=== PATIENT | male | born 1985 | race Caucasian/White ===

== ENCOUNTER 2016-05-12 13:22 | Emergency (ER) | payer OTHER ==
[~2016-05-12] VITALS: Ht 190.5 cm; Wt 109.1 kg
[2016-05-12 13:29] VITALS: BP 133/84; PULSE 81; RESP 16; O2SAT 96
--- NOTE | 2016-05-12 14:10 | ED.REPORT ---
HPI-Extremity Problem Upper Date of Service May 12, 2016 ED Provider: Janneth Dalal History of Present Illness: cut left thumb around 1 pm today at work. Works at [employer]. right hand dominant. unknown tdap. primary care is no one. 03/02 Nursing Notes Stated Complaint: LEFT HAND THUMB LACERATION Chief Complaint: Laceration Allergies: Coded Allergies: No Known Allergies (Unverified , 05/12/16) General Time Seen by MD: 14:09 Chief Complaint Finger injury left 1 Hx Obtained From: Patient Onset Occurred: Just prior to arrival Caused by: Accidental Context: Occurred at: Workplace Severity: Current: Pain level 1 out of 10 Past Medical History Past Medical History Denies: Asthma, Diabetes mellitus Past Surgical History Reports: Tonsillectomy Smoking History Current Every Day Smoker (1/2 pack a day for 9 years) Social History Alcohol Use: 1-3 per week Drug Use: THC Occupation single lives by self, works at [employer] Ambulatory Status Independent Review of Systems Basic Review of Systems Eyes: Vision NL, No discharge : No dysuria, No frequency Psychiatric: Normal thought content Physical Exam Initial Vital Signs Vital Signs (First) Date Time Temp Pulse Resp B/P Pulse Ox O2 Delivery O2 Flow Rate FiO2 05/12/16 13:29 36.1 81 16 133/84 96 Initial VS: Reviewed, Vital signs normal General/Constitutional: Well-developed, Well-nourished Head / Eyes: Atraumatic, Normocephalic, PERRL ENT: Mucous membranes moist, Conjunctiva normal, No scleral icterus Neck: Supple, Non-tender, Full range of motion Respiratory: Breath sounds normal, Clear to auscultation, No respiratory distress Cardiovascular: Regular rate & rhythm, Heart sounds normal, Intact distal pulses Abdomen / GI: Soft, Non-tender, No guarding, No rebound, No distention Back: No CVA tenderness Lymphatic: No lymphadenopathy Lower Extremities: Vascular intact, Neuro intact, No swelling, No tenderness Skin: Warm, Dry, No cyanosis Neurologic: Alert, Oriented, Nonfocal Psychiatric: Mood/affect normal, Behavior normal, Normal thought content General/Constitutional: Awake, Alert, No acute distress, Well appearing, Well developed, Well hydrated, Well nourished, Cooperative, Not toxic appearing Respiratory / Chest: Atraumatic, Breath sounds NL, Breath sounds = bilat, No respiratory distress Cardiovascular: Heart rate NL, Regular rhythm, Heart sounds NL Upper Extremity / MS: Atraumatic, Inspection NL, Full range of motion left thumb laceration on pad. 2 cm, no active bleeding. Cap refill less than 2 sec. Full range of motion Procedures Laceration Management Time: 14:30 Procedure Performed by: Allied health pract Consent / Setup / Site Prep: Informed consent provided, Consent from patient , Hand hygiene observed, Stand sterile technique Wound Length: 2 cm Local Anesthesia: Lidocaine 1%, 4cc, 27g needle Digital Block: Yes Digit Involved: Thumb left Wound Preparation: Normal saline Debridement: None Irrigation: Copious Foreign Body Explore / Removal: Explored for foreign body # Sutures - Skin: 3 Closure Layers: 1 Suture Technique: Simple Post-Procedure / Complications: Antibiotic oint applied, Dressing applied, No complications, Condition improved, Tolerated procedure well, Patient stable Re-Eval/Medical Decision Med Decision/Clinical Course 30 year old male presents for repair of thumb laceration which occured while at work. Exam is reassuring, sensation intact diastally, cap refill less than 2 sec. No sign of compartment syndrome or cellulitis. Discharge & Departure Impression: Primary Impression: Laceration Disposition: Home Patient Instructions: Finger Laceration (ED) Additional Instructions: The laceration on your thumb has been repaired with 3 sutures. Keep dry for 24 hours. Sutures out in 10 to 14 days here. Use bacitracin and a bandaid tot he site. You have been updated on your tdap today. REturn with increasing redness or pain. Establish in primary care with the residency clinic. Referrals: [facility] EDSupervising Provider for APC: José Miguel Swanson MD copies to: [facility] Janneth Dalal May 12, 2016 14:09
[2016-05-12] MEDS ORDERED: Lidocaine 1% 50 mL Inj NERVEBLOCK ONE (14:15)
[2016-05-12] MEDS ORDERED: TdaP Vaccine 0.5 mL Inj IM ONE (14:15)
== END 2016-05-12 14:55 ==
LOC: SED 13:22
DX: S61.012A Laceration without foreign body of left thumb without damage to nail, initial encounter (principal); W26.8XXA Contact with other sharp object(s), not elsewhere classified, initial encounter; Y93.89 Activity, other specified; Y92.511 Restaurant or cafe as the place of occurrence of the external cause; Y99.0 Civilian activity done for income or pay; Z23 Encounter for immunization; F17.200 Nicotine dependence, unspecified, uncomplicated